=== PATIENT | female | born 2000 | race Caucasian/White ===

== ENCOUNTER 2019-08-11 14:01 | Emergency (ER) | payer OTHER, SELFPAY ==
--- NOTE | ~2019-08-11 | XR_ITS ---
XR chest 1V portable DATE: 08/11/2019 14:51 INDICATION: Cough TECHNIQUE: Portable upright AP chest on 08/11/2019 COMPARISON: 08/05/2018 PA and lateral chest FINDINGS: No pulmonary infiltrate or consolidation, pleural effusion or pulmonary vascular congestion or pneumothorax. Normal heart size. No hilar or mediastinal enlargement. Included skeletal structures are unremarkable. IMPRESSION: No active cardiac pulmonary disease Reviewed, dictated and finalized at location A.
--- NOTE | 2019-08-11 14:22 | ED.URI ---
HPI - URI/Sore Throat General Chief Complaint: Upper Respiratory Infection Stated Complaint: cough, congestion Time Seen by Provider: 08/11/19 14:21 Source: patient Mode of arrival: ambulatory Limitations: no limitations History of Present Illness HPI Narrative: the pt is a 19 y/o female who presents to the ED c/o flu-like symptoms onset 6 days ago. Pt states that she is a student at [employer] in [place], [place], and is back for her spring break. Pt states that she shares a common area with [employer] students who have tested positive for coronavirus. 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 Pt also notes that her friend has had similar symptoms, and she came back to visit. Pt reports sore throat and productive cough with blood. Pt reports left-sided CP. She notes she has a PMHx of depression. 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, common area cough sore throat MD elicited complaint: other (Flu-like symptoms) Onset (ago): day(s) (6) Description of mucous: bloody Context: other(s) with similar symptoms (Pt's friend) Associated symptoms: sore throat, cough (Productive, bloody) and chest pain (Left-sided) Related Data Home Medications Medication Instructions Recorded Confirmed medroxyprogesterone 150 mg/mL 150 mg IM [id number] 04/18/19 intramuscular suspension spironolactone 100 mg tablet 150 mg PO DAILY tablet 04/22/19 Allergies Allergy/AdvReac Type Severity Reaction Status Date / Time No Known Allergies Allergy Unknown Unverified 04/22/19 09:26 Review of Systems Review of Systems: All systems reviewed & are unremarkable except as noted in HPI and below ENT: Reports sore throat Cardiovascular: Cardiovascular: Reports chest pain (Left-sided) Respiratory: Respiratory: Reports cough (Productive, bloody) [facility] Past Medical History Medical History (Updated 08/11/19 @ 15:37 by Janine Adair MD) Depression Factor V deficiency Surgical History Surgical History History of nasal septoplasty History of tympanoplasty Social History Social History Smoking status: Never smoker Alcohol intake: never Gender identity (if verbalized by the patient): Female Comments PCP: Dr. King Exam Narrative: Exam Narrative: General appearance: Well-developed, well-nourished Skin: Normal color Head: Normocephalic, nontraumatic Eyes: Clear conjunctiva ENT: Oropharynx normal, ears normal, nose normal Neck: Supple, nontender Chest and respiratory: Airway patent, no respiratory distress, no accessory muscle use Heart: Regular rate/rhythm Abdomen: Soft, nontender, no organomegaly, quiet bowel sounds Vascular: Normal peripheral pulses, normal capillary refill. 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 Influenza swab ordered,
[2019-08-11 14:51] VITALS: BP 137/81; PULSE 112; RESP 15; TEMP 37.1; O2SAT 100
--- NOTE | 2019-08-11 15:01 | PC.NURSE ---
Pt states she has cough, CASTRO, fever, chest congestions and diarrhea x 6 days. Pt states she did not take any meds at home today. Pt currently has no fever. Pt lungs diminished throughout. Pt is A&Ox4. Pt appears in NAD. Pt has family at bedside and call light in reach
== END 2019-08-11 15:54 | disposition home or self-care (01) ==
PROVIDERS: Emergency Provider Emergency Medicine
DX: J06.9 Acute upper respiratory infection, unspecified (principal); Z20.828 Contact with and (suspected) exposure to other viral communicable diseases
CPT/HCPCS: 71045; 87804; 99283

== ENCOUNTER 2020-04-20 12:03 | Outpatient (CLI) | payer OTHER, SELFPAY ==
[2020-04-20 12:54] LABS: Partial Thromboplastin Time 28.4 SECONDS (22.3-36.8)
[2020-04-20 13:12] LABS: Basophils Absolute Auto 0.1 K/mm3 (0.0-0.1); Basophils Percent Auto 0.9 % (0.2-1.2); Eosinophils Absolute Auto 0.2 K/mm3 (0-0.3); Eosinophils Percent Auto 2.6 % (0-4.4); Hematocrit 43.9 % (37.0-47.0); Hemoglobin 15.2 g/dL (12.0-15.0); Immature Granulocyte Absolute 0.01 K/mm3 (0.00-0.031); Immature Granulocyte Percent A 0.2 % (0-0.5); Lymphocytes Absolute Auto 2.24 K/mm3 (0.9-3.2); Lymphocytes Percent Auto 33.8 % (18.3-44.2); Mean Corpuscular HGB Conc 34.6 g/dl (32-36); Mean Corpuscular Hemoglobin 31.1 pg (26-34); Mean Platelet Volume 9.1 fl (7.4-10.4); Monocytes Absolute Auto 0.7 K/mm3 (0.1-0.6); Monocytes Percent Auto 10.3 % (2.6-8.5); Neutrophils Absolute Auto 3.5 K/mm3 (1.3-6.7); Neutrophils Percent Auto 52.2 % (45.5-73.1); Platelet Count Result 310 k/mm3 (150-375); Red Blood Count 4.88 M/mm3 (4.2-5.4); Red Cell Distribution Width 12.5 % (11.5-14.5); White Blood Count 6.6 K/mm3 (4.5-10.0)
== END 2020-04-20 12:04 | disposition home or self-care (01) ==
PROVIDERS: PCP Pediatrics; Visit Provider Pediatrics
DX: R53.83 Other fatigue (principal); R23.3 Spontaneous ecchymoses
CPT/HCPCS: 36415; 85025; 85730

== ENCOUNTER 2020-08-15 13:18 | Outpatient (CLI) | payer OTHER, SELFPAY | END 2020-08-15 13:19 | disposition home or self-care (01) | LOC: ANHCOVIDVC 13:18 | PROVIDERS: PCP Pediatrics | DX: Z23 Encounter for immunization (principal) | CPT/HCPCS: 0001A; 91300 ==

== ENCOUNTER 2020-09-05 13:47 | Outpatient (CLI) | payer OTHER, SELFPAY | END 2020-09-05 13:48 | disposition home or self-care (01) | LOC: ANHCOVIDVC 13:47 | PROVIDERS: PCP Pediatrics | DX: Z23 Encounter for immunization (principal) | CPT/HCPCS: 0002A; 91300 ==

== ENCOUNTER → 2020-12-11 06:57 | Outpatient (CLI) | payer OTHER, SELFPAY ==
[2020-12-11 17:38] LABS: SARS-CoV-2 RNA PCR Negative
== END ==
PROVIDERS: PCP Family Medicine; Visit Provider Physician Assistant
DX: R05 Cough (principal); Z20.822 Contact with and (suspected) exposure to COVID-19
CPT/HCPCS: C9803; U0003; U0005

== ENCOUNTER 2021-01-15 13:31 | Emergency (ER) | payer OTHER, SELFPAY ==
[2021-01-15 13:36] VITALS: BP 124/73; PULSE 123; RESP 16; TEMP 37.1; O2SAT 99
--- NOTE | 2021-01-15 13:37 | ED.URI ---
HPI - URI/Sore Throat General Chief Complaint: Upper Respiratory Infection Stated Complaint: cough/chest pressure Time Seen by Provider: 01/15/21 13:45 Source: patient and RN notes reviewed Mode of arrival: ambulatory Limitations: no limitations History of Present Illness HPI Narrative: 20-year-old female presents with concern for 4-day history of cough. Reports postnasal drainage, green nasal drainage. She denies fever, body aches, chills, sweats, sinus pain, sore throat, headache, shortness of breath. Reports that she was vaccinated for Covid in August. Denies any known sick contacts. MD elicited complaint: cough Related Data Home Medications Medication Instructions Recorded Confirmed spironolactone 100 mg tablet 150 mg PO DAILY tablet 04/22/19 10/15/20 valacyclovir 1 gram tablet 1,000 mg PO DAILY PRN 10/15/20 10/15/20 Allergies Allergy/AdvReac Type Severity Reaction Status Date / Time sertraline AdvReac Severe anger, rage Verified 01/01/21 11:46 Review of Systems Review of Systems: CONSTITUTIONAL: Denies malaise, chills, sweats, or fever. EYES: Denies visual changes, redness, or discharge. ENT: Reports rhinorrhea, postnasal drainage. Denies congestion, sinus pain, otalgia and sore throat. CARDIOVASCULAR: Denies chest pain, palpitations, or edema. RESPIRATORY: Reports cough. Denies dyspnea. GASTROINTESTINAL: Denies abdominal pain, nausea, vomiting, diarrhea SKIN: Denies rash or itching. MUSCULOSKELETAL: Denies myalgia. NEUROLOGIC: Denies headache. All systems reviewed & are unremarkable except as noted in HPI and below PMFSH Past Medical History Medical History Depression Factor V deficiency Surgical History Surgical History History of nasal septoplasty History of tympanoplasty Family History Family History Grandparent Diabetes mellitus Father Hypertension Other Cerebrovascular accident Family history of arthritis Family history of cardiovascular disease Social History Social History (Updated 01/01/21 @ 11:48 by Shanta Katz CMA) Smoking status: Current some day smoker Alcohol intake: current Alcohol use details: socially; seldom Substance use: never Substance use type: does not use Gender identity (if verbalized by the patient): Female Comments At time of signature, agree with nursing past medical, surgical, social and family history. There is no relevant family history pertinent to the presenting complaint Exam Narrative: GENERAL: Well-appearing, well-nourished, and in no acute distress. HEAD: Normocephalic EYES: PERRLA, conjunctivae clear ENT: Nares clear, turbinates edematous and erythematous, clear discharge. Mucous membranes moist. TM pearly goldstein with dull light reflex bilaterally; no tragal tenderness. Oropharynx erythematous without lesions. Tonsils enlarged and without exudate, no drooling, no hoarseness, no trismus, uvula midline. NECK: Supple. No lymphadenopathy CHEST: Clear to auscultation, breath sounds equal. No wheezing, rhonchi, rales, or stridor. No respiratory distress, speaks in full sentences. HEART: Regular rate and rhythm. No murmur heard. SKIN: Warm, dry, no rash. NEURO: Alert and oriented x3. PSYCH: Normal mood and affect Course Course Emergency Course: Patient is aware of diagnosis, understands and agrees to treatment plan. Anticipatory guidance given. Patient agrees to follow-up as directed and is aware of reasons to seek care at the emergency department. Portions of this record may have been created with voice recognition software Vital Signs Vital signs: Reviewed. MDM - URI/Sore Throat MDM Narrative Medical decision making narrative: Differential diagnosis considered: Martines virus, strep pharyngitis, allergic rhinitis, upper respiratory tract infection, sinu
== END 2021-01-15 14:06 | disposition home or self-care (01) ==
PROVIDERS: Emergency Provider Nurse Practitioner; PCP Family Medicine
DX: J06.9 Acute upper respiratory infection, unspecified (principal); Z20.822 Contact with and (suspected) exposure to COVID-19; F17.200 Nicotine dependence, unspecified, uncomplicated; F32.9 Major depressive disorder, single episode, unspecified; D68.2 Hereditary deficiency of other clotting factors
CPT/HCPCS: 87426; 99213; C9803; G0463

== ENCOUNTER 2021-03-11 06:33 | Emergency (ER) | payer OTHER, SELFPAY ==
--- NOTE | ~2021-03-11 | CT_ITS ---
EXAMINATION: CTA brain carotid EXAM DATE: 03/11/2021 09:33 INDICATION: Dizziness. Vertigo. Legs tingling, paresthesia. TECHNIQUE: Noncontrast head CT. Spiral CTA of the carotid arteries was performed with intravenous i njection 100 cc of Omnipaque 350. Axial, coronal, sagittal reformatted images reviewed. Additional r eformatted images created on dedicated 3-D workstation. NASCET comparable standard used to assess th e degree of arterial stenosis. Spiral CT angiogram cerebral arteries performed with the same intrave nous injection of contrast. Source images of the brain CTA transferred to dedicated workstation for 3 -D rotational image creation. Coronal, sagittal maximum intensity pixel images also reviewed. The d ose-length product (DLP) for this examination was 1646.41 mGy-cm. The exposure was tailored accordi ng to patient size, and iterative reconstruction (ASIR) was used as additional dose reduction techniq ue. There is no prior study for comparison. FINDINGS: There is bilateral carotid bulb 0% stenosis. Carotid siphons are also normal. There is no carotid or vertebral basilar arterial dissection or fibromuscular dysplasia. There are no cerebral ar ruba aneurysms. There is symmetric cerebral artery arborization. The sagittal, transverse and sigmoid sinuses enhance normally, no venous sinus thrombosis. Internal cerebral veins also enhance normally. There is no acute intraparenchymal hemorrhage. No evidence of intraparenchymal brain mass lesion. N o evidence of acute infarction. There is no mass effect or midline shift. There is no obstructive hyd rocephalus suspected. There are no extra-axial collections. Incidental Findings: None. IMPRESSION: 1. No acute carotid or intracranial findings. 2. Bilateral carotid bulb 0% stenosis. Reviewed, dictated and finalized at location A.
[2021-03-11 06:36] VITALS: BP 122/55; PULSE 99; RESP 18; TEMP 36.3; O2SAT 98
--- NOTE | 2021-03-11 07:14 | ECG_ITS ---
Measurements Intervals [place] Rate: 84 P: 0 NH: 123 QRS: 55 QRSD: 89 T: 30 QT: 337 QTc: 400 Interpretive Statements SINUS RHYTHM INCOMPLETE RIGHT BUNDLE BRANCH BLOCK BORDERLINE T WAVE ABNORMALITY- ANTERIOR LEADS BORDERLINE ECG Electronically Signed On 03-11-2021 8:15:09 CDT by Codey Snyder D.O.
[2021-03-11 07:38] LABS: Basophils Absolute Auto 0.1 K/mm3 (0.0-0.1); Basophils Percent Auto 1.2 % (0.2-1.2); Eosinophils Absolute Auto 0.1 K/mm3 (0-0.3); Eosinophils Percent Auto 2.8 % (0-4.4); Hematocrit 40.8 % (37.0-47.0); Immature Granulocyte Absolute 0.01 K/mm3 (0.00-0.031); Immature Granulocyte Percent A 0.2 % (0-0.5); Lymphocytes Absolute Auto 1.97 K/mm3 (0.9-3.2); Lymphocytes Percent Auto 39.2 % (18.3-44.2); Mean Corpuscular HGB Conc 34.3 g/dl (32-36); Mean Corpuscular Hemoglobin 31.3 pg (26-34); Mean Corpuscular Volume 91.1 fl (80-100); Mean Platelet Volume 9.4 fl (7.4-10.4); Monocytes Absolute Auto 0.6 K/mm3 (0.1-0.6); Neutrophils Absolute Auto 2.3 K/mm3 (1.3-6.7); Neutrophils Percent Auto 45.6 % (45.5-73.1); Platelet Count Result 208 k/mm3 (150-375); Red Blood Count 4.48 M/mm3 (4.2-5.4); Red Cell Distribution Width 12.3 % (11.5-14.5)
[2021-03-11 07:51] LABS: Anion Gap 8 mmol/L (8-16); Blood Urea Nitrogen 15 mg/dL (7-17); Calcium 9.1 mg/dL (8.4-10.2); Carbon Dioxide 24 mmol/L (22-30); Chloride 107 mmol/L (98-107); Estimated CRCL calculation 101 ml/min; Estimated Glomerular Filt Rate > 60; Glucose 95 mg/dL (65-110); Potassium 3.6 mmol/L (3.4-5.0); Sodium 139 mmol/L (137-145)
[2021-03-11 08:09] LABS: Add Urine Microscopic? YES; Appearance Urine Clear (Clear); Bilirubin Urine Negative (Negative); Blood Urine Negative (Negative); Color Urine Yellow (Yellow); Glucose Urine UA Negative (Negative); Ketones Urine Negative (Negative); Leukocyte Esterase Ur 2+ LEU/UL (Negative); Mucus Urine Rare /lpf; Nitrate Urine Negative (Negative); Protein Urine Negative (Negative); RBC Urine 0-2 /hpf (0-2); Specific Grav Ur 1.013 (1.001-1.035); Squamous Epithelial Cell Urine Rare /hpf (Few); Urobilinogen Urine Negative mg/dL (<2.0); WBC Urine 0-3 /hpf
--- NOTE | 2021-03-11 08:34 | ED.GENADULT ---
HPI - General Adult General Chief complaint: Dizziness Stated complaint: Vertigo Time Seen by Provider: 03/11/21 07:06 Source: patient History of Present Illness HPI narrative: Patient is a 20 y/o female complaining of severe dizziness starting 1 week ago. She describes her dizziness light-headedness and feeling drunk. She states that moving her head seems to aggravated her dizziness. She has some headache, which she states that she gets often at baseline. Related Data Home Medications Medication Instructions Recorded Confirmed spironolactone 100 mg tablet 150 mg PO DAILY tablet 04/22/19 10/15/20 valacyclovir 1 gram tablet 1,000 mg PO DAILY PRN 10/15/20 10/15/20 Allergies Allergy/AdvReac Type Severity Reaction Status Date / Time sertraline AdvReac Severe anger, rage Verified 03/11/21 07:15 Review of Systems Constitutional: Constitutional: Denies chills, Denies fever(s), Denies headache(s) and Denies weakness Eyes: Eyes: Denies blurry vision ENT: Denies headache(s) and Denies neck pain Cardiovascular: Cardiovascular: Denies chest pain and Denies dyspnea Respiratory: Respiratory: Denies cough and Denies dyspnea Gastrointestinal: Gastrointestinal: Denies abdominal pain, Denies diarrhea, Denies nausea and Denies vomiting Genitourinary: Genitourinary: Denies hematuria and Denies dysuria Musculoskeletal: Musculoskeletal: Denies back pain and Denies neck pain Neurologic: Reports dizziness, Denies headache(s) and Denies weakness PMFSH Past Medical History Medical History Depression Factor V deficiency Surgical History Surgical History History of nasal septoplasty History of tympanoplasty Family History Family History Grandparent Diabetes mellitus Father Hypertension Other Cerebrovascular accident Family history of arthritis Family history of cardiovascular disease Social History Social History (Updated 01/01/21 @ 11:48 by Shanta Katz CMA) Smoking status: Current some day smoker Alcohol intake: current Alcohol use details: socially; seldom Substance use: never Substance use type: does not use Gender identity (if verbalized by the patient): Female Exam Const: General: no acute distress and well developed Orientation/consciousness: oriented to person, oriented to place, oriented to time and patient oriented x3 HENMT: Head: normocephalic Ears: external ears normal General nose exam: Normal external nose present Eyes: General: appearance normal, both eyes and all related structures Conjunctivae: conjunctivae normal Neck: Neck: normal visual inspection and full ROM Chest: Chest palpation & inspection: normal inspection of the chest and no tenderness Resp: Effort & Inspection: normal respiratory effort Auscultation: clear to auscultation bilaterally Cardio: Rate: regular rate Rhythm: regular rhythm GI: GI Palp: No abdominal tenderness and Yes Soft to palpation Skin: General skin exam: normal color and turgor normal Neuro: General: oriented to person, oriented to place, oriented to time and patient oriented x3 Cranial nerves: Yes CN's II-XII intact bilaterally Cognition (Neuro): normal cognition Speech: normal speech Motor exam (neuro): 5/5 motor strength present throughout Sensory Exam: normal sensation Coordination: [id number] test normal and [id number] test normal Extrem: General: normal to inspection, full ROM and no pedal edema Psych: Appearance: grossly normal Mental Status: mental status grossly normal Affect: normal affect Course Vital Signs Vital signs: Vital Signs Temperature 36.3 C L 03/11/21 06:36 Pulse Rate 99 03/11/21 06:36 Respiratory Rate 18 03/11/21 06:36 Blood Pressure 122/55 L 03/11/21 06:36 Pulse Oximetry 98 03/11/21 06:36
[2021-03-11] MEDS: MECLIZINE HCL 25 MG TABLET PO (09:56)
[2021-03-11 10:36] VITALS: BP 119/53; PULSE 100; RESP 14; O2SAT 100
--- NOTE | 2021-03-11 10:46 | PC.NURSE ---
Pt ambulated in hallway. Stated she felt okay lying flat then as she walked in the [place] she started feeling off again. Like shes moving in slow motion. EDP notified.
[2021-03-11 12:43] VITALS: BP 111/42; PULSE 79; RESP 18; O2SAT 99
[2021-03-11 13:18] VITALS: BP 132/78; PULSE 78; RESP 18; O2SAT 99
== END 2021-03-11 13:19 | disposition home or self-care (01) ==
PROVIDERS: Emergency Provider Emergency Medicine; PCP Family Medicine
DX: R42 Dizziness and giddiness (principal); R51.9 Headache, unspecified; F32.9 Major depressive disorder, single episode, unspecified; D68.2 Hereditary deficiency of other clotting factors; Z72.0 Tobacco use
CPT/HCPCS: 36415; 70496; 70498; 80048; 81001; 81025; 85025; 93005; 99284; A9270; Q9967

== ENCOUNTER 2021-08-14 09:47 | Emergency (ER) | payer OTHER, SELFPAY ==
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
[2021-08-14 09:48] VITALS: BP 117/57; PULSE 114; RESP 20; TEMP 37.2; O2SAT 100
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
[2021-08-14 10:49] LABS: Add Urine Microscopic? NO; Appearance Urine Clear (Clear); Bilirubin Urine Negative (Negative); Blood Urine Negative (Negative); Color Urine Yellow (Yellow); Glucose Urine UA Negative (Negative); Ketones Urine Negative (Negative); Leukocyte Esterase Ur Negative LEU/UL (Negative); Nitrate Urine Negative (Negative); Protein Urine Negative (Negative); Specific Grav Ur 1.014 (1.001-1.035); Urobilinogen Urine Negative mg/dL (<2.0)
[2021-08-14 11:48] VITALS: BP 132/74; PULSE 80; RESP 16; O2SAT 99
== END 2021-08-14 11:49 | disposition home or self-care (01) ==
PROVIDERS: Emergency Provider Nurse Practitioner Family; PCP Family Medicine
DX: S20.219A Contusion of unspecified front wall of thorax, initial encounter (principal); S09.90XA Unspecified injury of head, initial encounter; V43.52XA Car driver injured in collision with other type car in traffic accident, initial encounter; F17.210 Nicotine dependence, cigarettes, uncomplicated
CPT/HCPCS: 70450; 71250; 72125; 81003; 81025; 99284

== ENCOUNTER 2021-12-04 09:38 | Emergency (ER) | payer OTHER, SELFPAY ==
--- NOTE | ~2021-12-04 | CT_ITS ---
EXAMINATION: CTA chest PE protocol DATE: 12/04/2021 11:30 INDICATION: Chest pain and shortness of breath TECHNIQUE: Computed tomography angiography (CTA) of the chest was performed with 100 mL Omnipaque-350 intravenous contrast timed to evaluate the pulmonary arteries. Coronal maximum intensity projection 3D-reconstructions were created by the technologist. The dose-length product (DLP) was 154.90 mGy-cm. Automated exposure control and iterative reconstruction technique were employed. COMPARISON: None. FINDINGS: The pulmonary arteries are well-opacified. No pulmonary embolism is identified. There is mi ld dependent atelectasis. The lungs are free of focal airspace opacities. No pleural effusion or pneu mothorax. No pathologically enlarged thoracic lymph nodes are identified. The heart size is normal. IMPRESSION: 1. No pulmonary embolism or acute cardiopulmonary abnormality. Reviewed, dictated and finalized at location B.
--- NOTE | ~2021-12-04 | US_ITS ---
EXAMINATION: US venous doppler UE DATE: 12/04/2021 10:40 INDICATION: Left upper limb pain. Coagulopathy with factor V derangement TECHNIQUE: Grayscale images without and with compression and Doppler images of the left upper extremi ty veins were obtained. COMPARISON: None. FINDINGS: The left internal jugular vein, subclavian vein, axillary vein, brachial vein, basilic vein, radial v ein, and ulnar vein are patent. The left cephalic vein is not identified. IMPRESSION: 1. Patent left upper extremity veins. No evidence of venous thrombosis. Reviewed, dictated and finalized at location A.
[2021-12-04 09:46] VITALS: BP 134/77; PULSE 93; RESP 18; TEMP 36.6; O2SAT 100
--- NOTE | 2021-12-04 10:06 | ECG_ITS ---
Measurements Intervals [place] Rate: 82 P: -3 DE: 127 QRS: 54 QRSD: 88 T: 30 QT: 363 QTc: 425 Interpretive Statements SINUS RHYTHM INCOMPLETE RIGHT BUNDLE BRANCH BLOCK BORDERLINE T WAVE ABNORMALITY- ANTERIOR LEADS BORDERLINE ECG Electronically Signed On 12-04-2021 11:00:03 CDT by Codey Snyder D.O.
--- NOTE | 2021-12-04 10:12 | PC.NURSE ---
Patient going to US prior to blood and EKG being complete.
--- NOTE | 2021-12-04 10:18 | ED.GENADULT ---
HPI - General Adult General Chief complaint: Extremity Injury, Upper Stated complaint: LFA pain Time Seen by Provider: 12/04/21 09:42 Source: patient History of Present Illness HPI narrative: Patient presents with left elbow pain. For symptoms started this morning describes an achy sensation in her left elbow that is getting progressively worse to take Aleve and that has alleviated some of her symptoms. However symptoms have not resolved so she came ER for further evaluation. She does report history of factor V Leiden defect and is concerned maybe she has developed a blood clot. Patient also reports left-sided chest pain and shortness of breath that started around the same time. Pain is achy, constant, radiates across her chest. Denies any recent hospitalizations or surgeries denies prior history of PE she is not on any anticoagulation. Denies any trauma to the area. Related Data Home Medications Medication Instructions Recorded Confirmed spironolactone 100 mg tablet 150 mg PO DAILY 04/22/19 10/10/21 valacyclovir 1 gram tablet 1,000 mg PO DAILY PRN Cold Sores 10/15/20 10/10/21 Allergies Allergy/AdvReac Type Severity Reaction Status Date / Time haloperidol [From Haldol] Allergy Muscle Verified 12/04/21 09:50 Spasms sertraline AdvReac Severe anger, rage Verified 12/04/21 09:50 Review of Systems Review of Systems: CONSTITUTIONAL: Denies fever, chills, or sweats. EYES: Denies visual changes, redness, or discharge. ENT: Denies rhinorrhea, congestion, sore throat, or otalgia. CARDIOVASCULAR: Denies palpitations, or edema. RESPIRATORY: Reports shortness of breath GASTROINTESTINAL: Denies abdominal pain, nausea, vomiting, or diarrhea. GENITOURINARY: Denies dysuria or hematuria. SKIN: Denies rash or itching. MUSCULOSKELETAL: Denies back pain, or myalgia. NEUROLOGIC: Denies headache, numbness, dizziness, or weakness. PSYCHIATRIC: Denies anxiety or depression. All systems reviewed & are unremarkable except as noted in HPI and below PMFSH Past Medical History Medical History Depression Factor V deficiency Initiation of Depo Provera Sexually transmissible disease Surgical History Surgical History History of nasal septoplasty History of tympanoplasty Family History Family History Grandparent Diabetes mellitus Father Hypertension Factor V Leiden Sibling Factor V Leiden Other Cerebrovascular accident Family history of arthritis Family history of cardiovascular disease Social History Social History Smoking status: Never smoker Alcohol intake: current Alcohol use details: socially; seldom Substance use: never Substance use type: does not use Gender identity (if verbalized by the patient): Female Exam Narrative: GENERAL: Well-appearing, well-nourished, and in no acute distress. HEAD: Normocephalic, atraumatic. EYES: PERRLA and EOMI. ENT: Nares clear, no rhinorrhea or epistaxis. Mucous membranes moist. NECK: Supple. No masses. No JVD CHEST: Clear to auscultation. No respiratory distress. No wheezes rales or rhonchi HEART: Regular rate and rhythm. No murmur heard. Normal peripheral pulses. ABDOMEN: Soft, nontender, nondistendedds. EXTREMITIES: Normal range of motion. No edema. Mild diffuse tenderness of the left elbow no edema in the left upper extremity no focal bony tenderness SKIN: Warm, dry, no rash. NEURO: No focal deficits. Alert and oriented x3. PSYCH: Normal mood and affect. Course Reevaluation(s) Reevaluation #1: Patient is resting comfortable results and plan reviewed with patient. Patient is comfortable outpatient plan. Date: 12/04/21 Time: 12:11 Vital Signs Vital signs: Vital Signs Temperature 36.6 C 12/04/21 09:46 Pulse Rate 93 12/04/21
[2021-12-04] MEDS: SODIUM CHLORIDE 0.9% IV 1,000 ML 999 ML IV CONT (10:55)
[2021-12-04 11:02] LABS: Basophils Absolute Auto 0.1 K/mm3 (0.0-0.1); Basophils Percent Auto 0.9 % (0.2-1.2); Eosinophils Absolute Auto 0.2 K/mm3 (0-0.3); Eosinophils Percent Auto 2.5 % (0-4.4); Hematocrit 40.8 % (37.0-47.0); Hemoglobin 13.5 g/dL (12.0-15.0); Immature Granulocyte Absolute 0.02 K/mm3 (0.00-0.031); Immature Granulocyte Percent A 0.3 % (0-0.5); Lymphocytes Absolute Auto 1.95 K/mm3 (0.9-3.2); Mean Corpuscular HGB Conc 33.1 g/dl (32-36); Mean Corpuscular Hemoglobin 30.5 pg (26-34); Mean Corpuscular Volume 92.3 fl (80-100); Mean Platelet Volume 9.1 fl (7.4-10.4); Monocytes Absolute Auto 0.7 K/mm3 (0.1-0.6); Monocytes Percent Auto 10.3 % (2.6-8.5); Neutrophils Absolute Auto 3.8 K/mm3 (1.3-6.7); Platelet Count Result 241 k/mm3 (150-375); Red Blood Count 4.42 M/mm3 (4.2-5.4); Red Cell Distribution Width 12.9 % (11.5-14.5); White Blood Count 6.7 K/mm3 (4.5-10.0)
[2021-12-04 11:13] LABS: INR 1.1; Prothrombin Time 13.6 Seconds (11.1-14.7)
[2021-12-04 11:14] LABS: Partial Thromboplastin Time 31.1 SECONDS (22.3-36.8)
[2021-12-04 11:15] LABS: Alanine Aminotransferase 29 U/L (6-35); Albumin Level 4.5 g/dL (3.5-5.1); Alkaline Phosphatase 80 U/L (38-126); Anion Gap 5 mmol/L (8-16); Aspartate Amino Transferase 38 U/L (14-36); Bilirubin,Total 0.4 mg/dL (0.2-1.3); Blood Urea Nitrogen 15 mg/dL (7-17); Calcium 8.9 mg/dL (8.4-10.2); Carbon Dioxide 25 mmol/L (22-30); Chloride 107 mmol/L (98-107); Estimated CRCL calculation 89 ml/min; Estimated Glomerular Filt Rate > 60; Glucose 74 mg/dL (65-110); Potassium 3.9 mmol/L (3.4-5.0); Sodium 137 mmol/L (137-145)
[2021-12-04 11:25] LABS: Troponin I < 0.012 ng/mL (0.000-0.034)
[2021-12-04 11:48] VITALS: BP 127/70; PULSE 98; RESP 17; O2SAT 100
== END 2021-12-04 12:22 | disposition home or self-care (01) ==
PROVIDERS: Emergency Provider Emergency Medicine; PCP Family Medicine
DX: R07.9 Chest pain, unspecified (principal); M25.522 Pain in left elbow; I45.10 Unspecified right bundle-branch block; F32.9 Major depressive disorder, single episode, unspecified; D68.51 Activated protein C resistance
CPT/HCPCS: 36415; 71275; 80053; 81025; 84484; 85025; 85610; 85730; 93005; 93971; 96360; 99284; J7030; Q9967

== ENCOUNTER 2022-12-01 08:35 | Outpatient (CLI) | payer OTHER, SELFPAY ==
[2022-12-01 19:29] LABS: Basophils Absolute Auto 0.1 K/mm3 (0.0-0.1); Basophils Percent Auto 1.2 % (0.2-1.2); Eosinophils Absolute Auto 0.2 K/mm3 (0-0.3); Eosinophils Percent Auto 3.2 % (0-4.4); Hematocrit 46.3 % (37.0-47.0); Hemoglobin 14.9 g/dL (12.0-15.0); Immature Granulocyte Absolute 0.01 K/mm3 (0.00-0.031); Immature Granulocyte Percent A 0.2 % (0-0.5); Lymphocytes Absolute Auto 2.25 K/mm3 (0.9-3.2); Lymphocytes Percent Auto 38.3 % (18.3-44.2); Mean Corpuscular HGB Conc 32.2 g/dl (32-36); Mean Corpuscular Hemoglobin 30.9 pg (26-34); Mean Corpuscular Volume 96.1 fl (80-100); Mean Platelet Volume 9.7 fl (7.4-10.4); Monocytes Absolute Auto 0.5 K/mm3 (0.1-0.6); Monocytes Percent Auto 8.9 % (2.6-8.5); Neutrophils Absolute Auto 2.8 K/mm3 (1.3-6.7); Neutrophils Percent Auto 48.2 % (45.5-73.1); Platelet Count Result 278 k/mm3 (150-375); Red Blood Count 4.82 M/mm3 (4.2-5.4); Red Cell Distribution Width 13.2 % (11.5-14.5); White Blood Count 5.9 K/mm3 (4.5-10.0)
[2022-12-01 20:40] LABS: Alanine Aminotransferase 26 U/L (6-35); Albumin Level 4.2 g/dL (3.5-5.1); Alkaline Phosphatase 76 U/L (38-126); Anion Gap 6 mmol/L (8-16); Aspartate Amino Transferase 50 U/L (14-36); Bilirubin,Total 0.5 mg/dL (0.2-1.3); Blood Urea Nitrogen 13 mg/dL (7-17); Calcium 8.8 mg/dL (8.4-10.2); Carbon Dioxide 25 mmol/L (22-30); Chloride 107 mmol/L (98-107); Cholesterol 131 mg/dL (0-200); Estimated Glomerular Filt Rate > 60; Glucose 80 mg/dL (65-110); HDL Direct 45 mg/dL; Potassium 4.3 mmol/L (3.4-5.0); Sodium 138 mmol/L (137-145); Triglycerides 32 mg/dL (<150)
[2022-12-01 20:51] LABS: LDL Cholesterol Direct 68 mg/dL
== END 2022-12-01 08:36 | disposition home or self-care (01) ==
LOC: ANHBWCLAB 08:38
PROVIDERS: PCP Nurse Practitioner Adult Health; Visit Provider Nurse Practitioner Adult Health
DX: Z00.00 Encounter for general adult medical examination without abnormal findings (principal); F41.9 Anxiety disorder, unspecified; F90.0 Attention-deficit hyperactivity disorder, predominantly inattentive type
CPT/HCPCS: 36415; 80053; 80061; 85025

== ENCOUNTER 2023-01-15 16:35 | Emergency (ER) | payer OTHER, SELFPAY ==
[2023-01-15 16:42] VITALS: BP 114/52; PULSE 86; RESP 16; TEMP 36.8; O2SAT 99
--- NOTE | 2023-01-15 16:58 | ED.URI ---
HPI - URI/Sore Throat General Chief Complaint: Upper Respiratory Infection Stated Complaint: Sinus/Sore Throat Time Seen by Provider: 01/15/23 17:05 Source: patient, RN notes reviewed and old records reviewed Mode of arrival: ambulatory Limitations: no limitations History of Present Illness HPI Narrative: 22-year-old female presents to the [facility] with complaints of sore throat sinus congestion and just feeling poorly. Patient states Thursday she was exposed to somebody with COVID, started having body aches on Thursday no for the last couple of days started having sore throat Denies fevers Related Data Home Medications Medication Instructions Recorded Confirmed spironolactone 100 mg tablet 150 mg PO DAILY 04/22/19 10/10/21 Allergies Allergy/AdvReac Type Severity Reaction Status Date / Time haloperidol [From Haldol] Allergy Muscle Verified 12/01/22 08:08 Spasms sertraline AdvReac Severe anger, rage Verified 12/01/22 08:08 Review of Systems Review of Systems: All systems reviewed & are unremarkable except as noted in HPI and below Constitutional: Constitutional: Reports as per HPI Eyes: Eyes: Reports no additional eye complaints ENT: Reports as per HPI Cardiovascular: Cardiovascular: Reports no additional cardiovascular complaints, Denies chest pain and Denies dyspnea Respiratory: Respiratory: Reports no additional respiratory complaints, Denies chest congestion, Denies cough and Denies dyspnea Gastrointestinal: Gastrointestinal: Reports no additional gastrointestinal complaints, Denies abdominal pain, Denies nausea and Denies vomiting Musculoskeletal: Musculoskeletal: Reports no additional musculoskeletal complaints Integumentary/Breasts: Skin/Breast: Reports system reviewed and no additional complaints, except as docu Neurologic: Reports system reviewed and no additional complaints, except as documented Psychiatric: Psychiatric: Reports no additional psychiatric complaints Allergic/Immunologic: Allergic/Immunologic: Reports no additional allergic/immunologic complaints ON LICENSE OF [facility] Past Medical History Medical History Depression Encounter for Depo-Provera contraception Factor V deficiency Initiation of Depo Provera Sexually transmissible disease Surveillance for Depo-Provera contraception Surgical History Surgical History History of nasal septoplasty History of tympanoplasty Family History Family History Grandparent Diabetes mellitus Father Hypertension Factor V Leiden Sibling Factor V Leiden Other Cerebrovascular accident Family history of arthritis Family history of cardiovascular disease Social History Social History Smoking packs per day: 0.25 Smoking cigarettes per day: 5.0 Years smoked: 4 Smoking pack-years: 1.00 Smoking status: Light tobacco smoker Tobacco type: e-cigarettes/vaping Smokeless tobacco user: dissolvable tobacco Second hand tobacco smoke exposure: No Alcohol intake: current Drinks per week: 6 Alcohol use details: socially; seldom Substance use: never Substance use type: does not use Lack of Transportation: No Lack of Food: Never True Current Housing: I Have Housing Concerned About Future Housing: No Difficulty Paying Gas/Electric Bills: No Difficulty Paying for Meds: No Currently Unemployed: No Education: Associate Degree Difficulty w/ Childcare or Family Care: No Living arrangements: with family Occupation/Education: occupation Additional occupation/education comments: [employer] Gender identity (if verbalized by the patient): Female Sexual Orientation (if Verbalized by the Patient): Straight or Heterosexual Spiritual care concerns: No Agree to blood products: Yes Comments At th
== END 2023-01-15 17:31 | disposition home or self-care (01) ==
PROVIDERS: Emergency Provider Nurse Practitioner; PCP Family Medicine
DX: J06.9 Acute upper respiratory infection, unspecified (principal); Z20.822 Contact with and (suspected) exposure to COVID-19; F17.290 Nicotine dependence, other tobacco product, uncomplicated; D68.2 Hereditary deficiency of other clotting factors
CPT/HCPCS: 87081; 87426; 87880; 99213; C9803; G0463